=== PATIENT | female | born 2000 | race Caucasian/White ===

== ENCOUNTER 2022-11-07 19:11 | Emergency (ER) | payer OTHER, SELFPAY | END 2022-11-07 21:58 | disposition home or self-care (01) | LOC: BURERS 19:11 | DX: S92.111A Displaced fracture of neck of right talus, initial encounter for closed fracture (principal); V80.010A Animal-rider injured by fall from or being thrown from horse in noncollision accident, initial encounter | CPT/HCPCS: 29515 ==

== ENCOUNTER 2024-08-22 15:37 | Emergency (ER) | payer OTHER, SELFPAY ==
[2024-08-22] MEDS ORDERED: Bicillin LA 1.2 MILLION UNITS/2 ML SYRINGE ONE (15:58)
== END 2024-08-22 16:05 | disposition home or self-care (01) ==
LOC: BURERS 15:37
DX: J02.0 Streptococcal pharyngitis (principal)
CPT/HCPCS: 87081; 87430; 96372; 99283; J0561